=== PATIENT | male | born 1955 | race Caucasian/White ===

== ENCOUNTER 2017-04-21 00:32 | Emergency (ER) | payer OTHER ==
[~2017-04-21] VITALS: Ht 182.9 cm; Wt 66.1 kg
[~2017-04-21 00:32] MED LIST: CHLO500T13 OR; LORT7.5T3 PO; RANI150T PO; VARE1 PO
[2017-04-21 00:34] VITALS: BP 133/89; PULSE 88; RESP 16; TEMP 98.7; O2SAT 97
[2017-04-21 00:45] VITALS: BP 133/89; PULSE 88; RESP 15; TEMP 98.7; O2SAT 97
[2017-04-21] MEDS ORDERED: LIDOCAINE 1%/EPINEPHrine 1:100,000 SOLN 20 ML VIAL INFIL ONE (01:00)
[2017-04-21] MEDS ORDERED: TETANUS/DIPHTHERIA TOXOID ADULT 0.5 ML VIAL IM ONE (01:15)
--- NOTE | 2017-04-21 01:44 | PD ---
HPI Chief Complaint: Laceration/Skin Injury Time Seen by Provider: 00:57 Travel History International Travel<30 days: No Contact w/Intl Traveler<30days: No Traveled to known affect area: No History of Present Illness HPI The patient is a 61-year-old male that fell about an hour ago, he tripped and this was a non-syncopal spell, and lacerated his tissues on the right eyebrow and below the right eye. The patient fell onto concrete and this is what lacerated the tissues. There was no loss of consciousness. He denies any eye injury. He denies any other injury. He does not remember when his last tetanus shot was, likely over 10 years. He denies any nausea or vomiting. [facility] Past Medical History Medical History: Denies Significant Hx Cancer: No Diabetes: No GERD: Yes Hepatitis: No Hiatal Hernia: No Medical other: Yes (chronic pain) Thyroid Disease: No Tetanus Vaccination: Unknown Influenza Vaccination: No ?: Not Past Surgical History Abdominal Surgery: Yes (multiple hernia repair) Cardiac Surgery: No Ear Surgery: No Endocrine Surgery: No Eye Surgery: No Genitourinary Surgery: No Gynecologic Surgery: No Oral Surgery: Yes (T & A) Pacemaker: No Thoracic Surgery: No Tonsillectomy: Yes Social History Alcohol Use: No Tobacco Use: Yes Substance Use: No Allergies-Medications (Allergen,Severity, Reaction): Coded Allergies: apple (Verified Allergy, Severe, SWELLING, 04/21/17) martinez (Verified Allergy, Severe, SWELLING, 04/21/17) peach (Verified Allergy, Severe, SWELLING, 04/21/17) penicillin G (Verified Allergy, Unknown, 04/21/17) Uncoded Allergies: ZOMAX (Allergy, Severe, ITCHING, FATHER HAD ANAPH. REACTION, 05/13/03) SOME UNKNOWN EYE DROPS (Allergy, Intermediate, 04/29/11) Reported Meds & Prescriptions Reported Meds & Active Scripts Active Reported Ranitidine 150 mg (Ranitidine HCl) 150 Mg Cap 150 Mg PO DAILY Review of Systems Except as stated in HPI: all other systems reviewed are Neg Physical Exam Narrative GENERAL: Well-nourished, well-developed patient in minimal apparent distress with his right supraorbital orbital and inferior orbital skin discomfort. His vital signs are normal except for blood pressure 133/89. SKIN: Focused skin assessment warm/dry. There is a 2-1/2 cm laceration over the right supraorbital area, in the eyebrow and there is a 1 0.5 cm laceration in the infraorbital area of the right eye. No eye involvement is present. HEAD: Normocephalic. EYES: No scleral icterus. No injection or drainage. Extraocular movements are normal. NECK: Supple, trachea midline. No JVD or lymphadenopathy. CARDIOVASCULAR: Regular rate and rhythm without murmurs, gallops, or rubs. RESPIRATORY: Breath sounds equal bilaterally. No accessory muscle use. GASTROINTESTINAL: Abdomen soft, non-tender, nondistended. MUSCULOSKELETAL: No cyanosis, or edema. BACK: Nontender without obvious deformity. No CVA tenderness. Data Data Last Documented VS Vital Signs Date Time Temp Pulse Resp B/P (MAP) Pulse Ox O2 Delivery O2 Flow Rate FiO2 04/21/17 00:45 98.7 88 15 133/89 (104) 97 Orders Orders Lidocai-Epi 1%-1:100,000 Inj (Xylocaine- (04/21/17 01:00) Tetanus/Diphtheria Tox Adult (Tetanus/Di (04/21/17 01:15) MDM Medical Decision Making Medical Screen Exam Complete: Yes Emergency Medical Condition: Yes Medical Record Reviewed: Yes Differential Diagnosis Laceration requiring sutures, laceration not requiring sutures, orbital fracture -unlikely Narrative Course The patient has 2 lacerations, one above the orbit and one below the orbit that both require suturing. There is no evidence of orbital fracture. Procedures Procedure Narrative The area was prepped with Betadine. Under sterile technique plain lidocaine was used to infiltrate the area. Lidocaine with epinephrine was not available here. The supraorbital laceration of 2-1/2 cm was sutured with 7 stitches of 5- 0 nylon. The infraorbital laceration 1 cm was sutured with 4 stitches of 5-0 nylon. The infraorbital laceration involved a skin avulsion and tissue is actually missing. Nevertheless the gap was closed by suturing. The patient tolerated the procedure well. Diagnosis Primary Impression: Facial laceration Additional Instructions: As we discussed, keep the wounds clean and dry. Keep the line of antibiotic ointment over the lacerations all the time. Return in 5 days, next Monday, for suture removal. Return immediately if there are any problems. Disposition: 01 DISCHARGE HOME Condition: Stable Filiberto Felix MD Apr 21, 2017 01:44
[2017-04-21 01:48] VITALS: BP 128/85; TEMP 98.4
== END 2017-04-21 01:56 | disposition home or self-care (01) ==
LOC: PHED 00:32
DX: S01.111A Laceration without foreign body of right eyelid and periocular area, initial encounter (principal); K21.9 Gastro-esophageal reflux disease without esophagitis; W01.0XXA Fall on same level from slipping, tripping and stumbling without subsequent striking against object, initial encounter; Z23 Encounter for immunization; Z72.0 Tobacco use; Z88.0 Allergy status to penicillin; Z88.8 Allergy status to other drugs, medicaments and biological substances
CPT/HCPCS: 12013; 90471; 90714